=== PATIENT | male | born 1980 | race Caucasian/White ===

== ENCOUNTER → 2016-09-07 | Outpatient (CLI) | payer OTHER ==
[~2016-09-07] MED LIST: GADOBUTROL 10 ML VIAL IVP ONE
--- NOTE | 2016-09-07 21:06 | MR ---
MRI of the Brain (Without and With Contrast) September 07, 2016 Indication: Right hand weakness. Technique: T1-weighted images were acquired axially and sagittally from the foramen magnum to the ve rtex. Axial fast inversion recovery, fast T2-weighted, susceptibility, and diffusion-weighted axial images were obtained without contrast. Postcontrast axial and coronal images with the uneventful intr avenous administration of 8.5 mL Gadavist contrast. Findings: Diffusion-weighted imaging is normal. No evidence of acute ischemia. No intracranial hemorr lisa, mass, or extra-axial fluid collection. The T2 and FLAIR-weighted imaging reveals minimal hyperintense periventricular white matter disease i n the left parietal lobe. There is no corresponding enhancement on the postcontrast imaging. Alanis-whi te matter signal is otherwise normal. The ventricular system is normal caliber and midline. The cervicooccipital junction is normal. The pi tuitary gland is normal size. The paranasal sinuses are clear. The sagittal sinus and carotid and bas ivertebral arteries have normal black signal void. Impression: 1. No evidence of acute ischemia, hemorrhage or mass. 2. Isolated small volume of periventricular white matter disease in the left parietal lobe may be seq uela from previous infection, migraine or trauma. Differential diagnosis includes multiple sclerosis. No enhancement to suggest active demyelinating process. Comment: Results were called to Dr. Norah Olivo, at 8:30 p.m. on September 07, 2016.
--- NOTE | 2016-09-07 21:26 | MR ---
MRI cervical spine without and with IV contrast dated September 07, 2016 Indication: New onset of right hand and arm weakness. Technique: Sagittal T2, STIR, T1, and T1 postcontrast with fat suppression. Stacked axial T2 and T1 p ostcontrast sequences were obtained from the foramen magnum through the C7 vertebral body. 8.5 mL of Gadovist was uneventfully intravenously administered. Findings: Spinal cord has normal caliber and signal. No atrophy, gliosis, or abnormal enhancement. Ce rvicooccipital junction is normal. Spinal canal is capacious. Cervical spine is normally aligned. Bone marrow signal is normal. No acute disk herniation or central canal narrowing at any level. The neural foramina are widely patent. Specifically, no explanation fo r right-sided symptoms. Impression: Normal MRI of the cervical spine. No demyelinating spinal cord lesion or disk herniation . Comment: The results were called to Dr. Norah Olivo shortly after the study completion at 8: 30 p.m. on September 07, 2016.
== END ==
LOC: FIMAGING 17:57
PROVIDERS: ATTEND Nurse Practitioner Adult Health
DX: R53.1 Weakness (principal); R51 Headache
CPT/HCPCS: A9585

== ENCOUNTER 2017-09-14 14:21 | Emergency (ER) | payer OTHER ==
--- NOTE | 2017-09-14 14:55 | EDPHY ---
H & P Stated Complaint: R wrist, R foot weakness x 2-3 weeks Time Seen by Provider: 09/14/17 14:55 HPI/ROS: CHIEF COMPLAINT: Right wrist and footdrop HISTORY OF PRESENT ILLNESS: The patient presents to the ED with a 2-3 week history of a right wrist in footdrop. The patient reports his symptoms may have began after a "heavy night of sleep." The patient reportedly had a similar episode 1 year ago involving only his left wrist. At that point time he had an unremarkable MRI of the brain and cervical spine. The patient was ultimately diagnosed with a peripheral neuropathy which slowly improved. The patient denies any acute headache. He denies any complaints of neck pain or back pain. REVIEW OF SYSTEMS: A comprehensive 10 point review of systems is otherwise negative aside from elements mentioned in the history of present illness. Source: Patient - Personal History Current Tetanus Diphtheria and Acellular Pertussis (TDAP): Unsure - Medical/Surgical History Hx Asthma: Yes Hx Chronic Respiratory Disease: No Hx Diabetes: No Hx Cardiac Disease: No Hx Renal Disease: No Hx Cirrhosis: No Hx Alcoholism: No Hx HIV/AIDS: No Hx Splenectomy or Spleen Trauma: No Other PMH: OCD, tourrettes syndrome - Social History Smoking Status: Light smoker - Physical Exam Exam: General Appearance: Alert, no distress Eyes: Pupils equal and round no pallor or injection ENT, Mouth: Mucous membranes moist Respiratory: There are no retractions, lungs are clear to auscultation Cardiovascular: Regular rate and rhythm Gastrointestinal: Abdomen is soft and nontender, no masses, bowel sounds normal Neurological: Right foot drop, right radial nerve palsy, alert and oriented x4 , 5/5 strength remainder of all muscle groups, cranial nerves 2-12 intact Skin: Warm and dry, no rashes Musculoskeletal: Neck is supple nontender Extremities: symmetrical, full range of motion Psychiatric: Patient is oriented X 3, there is no agitation Constitutional: Initial Vital Signs Temperature (C) 36.8 C 09/14/17 14:26 Heart Rate 78 09/14/17 14:26 Respiratory Rate 18 09/14/17 14:26 Blood Pressure 106/62 09/14/17 14:26 O2 Sat (%) 95 09/14/17 14:26 O2 Delivery Mode Room Air Allergies/Adverse Reactions: amoxicillin Allergy (Verified 09/16/15 20:11) Home Medications: Medication Instructions Recorded Albuterol 09/16/15 Albuterol [Proventil Inhaler HFA 1 - 2 puffs IH Q4H #1 mdi 09/16/15 (*)] Ambien 09/16/15 Prozac 20 MG (RX) 09/16/15 Xanax 09/16/15 guaiFENesin/CODEINE PHOS 5 - 10 ml PO HS #120 ml 09/16/15 [Robitussin AC] predniSONE 1 dose PO DAILY #18 tablet 09/16/15 Medical Decision Making ED Course/Re-evaluation: I did kj Parker from Neurology. He recommends an MRI of the brain and cervical spine. He raises the possibility of HNPP as a possible diagnosis. The patient is currently 3 weeks into his symptoms. MRI of the brain and cervical spine demonstrate no central or cervical cause of weakness. The patient will be placed in a splint in his right upper extremity. The patient has been referred to the neurologist at [facility] for nerve conduction testing and further evaluation. Differential Diagnosis: Differential diagnosis considered includes peripheral neuropathy, stroke, tumor , demyelinating illness - Data Points Medications Given: Discontinued Medications Lorazepam (Ativan) 1 mg PO EDNOW ONE Stop: 09/14/17 15:17 Last Admin: 09/14/17 16:08 Dose: 1 mg Departure - Departure Disposition: Home, Routine, Self-Care Clinical Impression: Radial nerve palsy Qualifiers: Laterality: right Qualified Code(s): G56.31 - Lesion of radial nerve, right upper limb Peroneal nerve palsy Qualifiers: Laterality: right Qualified Code(s): G57.31 - Lesion of lateral popliteal nerve , right lower limb Condition: Good Instructions: Radial Nerve Palsy (ED) Additional Instructions: 1. Your MRI of the brain and cervical spine demonstrate no evidence of acute disease. 2. Wear splint to your right upper extremity while your nerve injuries healing. 3. Please follow up with the neurologist you have been referred to for nerve conduction testing. Referrals: Coleen Porter MD [Primary Care Provider] - As per Instructions Mamta Gómez DO [Non Staff and Non MD] - As per Instructions
[2017-09-14] MEDS ORDERED: LORazepam 1 MG TAB PO ONE (15:16)
[2017-09-14 18:16] VITALS: BP 127/72; PULSE 65; RESP 16; TEMP 98.6; O2SAT 99
== END 2017-09-14 18:16 | disposition home or self-care (01) ==
DX: G57.31 Lesion of lateral popliteal nerve, right lower limb (principal); G56.31 Lesion of radial nerve, right upper limb; J45.909 Unspecified asthma, uncomplicated; F17.200 Nicotine dependence, unspecified, uncomplicated
CPT/HCPCS: L3807

== ENCOUNTER 2017-12-06 20:48 | Inpatient (IN) | payer OTHER ==
[2017-12-06 21:33] LABS: PLATELET COUNT 293 10^3/uL (150-400)
[2017-12-06] MEDS ORDERED: LORazepam 1 MG TAB PO ONE (21:41)
--- NOTE | 2017-12-06 21:45 | EDPHY ---
H & P Smoking Status: Light smoker Time Seen by Provider: 12/06/17 21:34 HPI/ROS: CHIEF COMPLAINT: Manic and paranoid HISTORY OF PRESENT ILLNESS: Patient was placed on mental health hold by samuel after he called 911 reporting that he was being chased by monkeys that he sees. The patient was placed on a hold with"paranoid delusions"including seeing monkeys in that he"believes people are tugging him."The patient tells me that it is just the"local crew of people who are doing sleight of [employer] stuff"which is the reason he called 911. Patient denies any acute medical problems but is clearly manic and delusional. REVIEW OF SYSTEMS: Eye: no change in vision ENT: no sore throat Cardiac: no chest pain or syncope Pulmonary: no cough or SOB Abdomen: no vomiting, diarrhea, abdominal pain Musculoskeletal: no back pain Skin: no rash Neuro: no headache Constitutional: no fever : no urinary symptoms A comprehensive 10 point review of systems is otherwise negative aside from elements mentioned in the history of present illness. PAST MEDICAL HISTORY: OCD, Tourette syndrome Social history: Patient denies alcohol or methamphetamine. General Appearance: Alert and conversant, cooperative. Eyes: No scleral icterus. Pupils equal and extraocular motion intact. ENT, Mouth: Normal mucous membranes. Respiratory: Normal respiratory effort, breath sounds equal, lungs are clear to auscultation. Cardiovascular: Regular rate and rhythm. Gastrointestinal: Abdomen is soft and non tender. Neurological: Alert, face symmetric, normal motor and sensory in extremities. Skin: Warm and dry, no rashes. Musculoskeletal: No peripheral edema. Psychiatric: Patient has rapid rambling speech and appears manic. He has delusions as documented in the HPI. Emergency Department course/MDM: Arrives on a mental health hold. Screening labs and urine tox ordered. Oral Ativan for agitation, delusional, psychosis. Signed out to [facility] at midnight with psych evaluation in progress. (Arpit Chery) Constitutional: Initial Vital Signs Temperature (C) 36.8 C 12/06/17 20:48 Heart Rate 78 12/06/17 20:48 Respiratory Rate 16 12/06/17 20:48 Blood Pressure 137/75 H 12/06/17 20:48 O2 Sat (%) 95 12/06/17 20:48 O2 Delivery Mode Room Air Allergies/Adverse Reactions: amoxicillin Allergy (Verified 09/16/15 20:11) Home Medications: Medication Instructions Recorded Albuterol 09/16/15 Albuterol [Proventil Inhaler HFA 1 - 2 puffs IH Q4H #1 mdi 09/16/15 (*)] Ambien 09/16/15 Prozac 20 MG (RX) 09/16/15 Xanax 09/16/15 Armodafinil 150 mg 12/07/17 Medical Decision Making Differential Diagnosis: 6:30 a.m.- Patient remained stable throughout my shift. Labs were checked and were remarkable for benzodiazepine positivity. The patient has taken more Xanax then he should be according to his prescription bottle. TLC evaluated the patient overnight, however would like to re-examine him when he has perhaps metabolized more of his Xanax. At 7:00 a.m., the case will be signed out to the oncoming provider Dr. Levin. (Felisha Lombardo) Differential considered including but not limited to blanca, metabolic, drug or alcohol, bipolar disorder. (Arpit Chery) - Data Points Laboratory Results: Laboratory Results 12/06/17 21:05 12/06/17 21:05 Medications Given: Discontinued Medications Lorazepam (Ativan) 1 mg PO EDNOW ONE Stop: 12/06/17 21:42 Last Admin: 12/06/17 21:45 Dose: 1 mg Departure - Departure Clinical Impression: Acute psychosis Condition: Fair Referrals: Coleen Porter MD [Primary Care Provider] - As per Instructions
[2017-12-07] MEDS ORDERED: MAG HYDROX/AL HYDROX/SIMETH 30 ML UDCUP PO PRN (13:37)
[2017-12-07] MEDS ORDERED: OLANZapine DISINTEGR 10 MG TAB PO PRN (13:37)
[2017-12-07] MEDS ORDERED: NICOTINE POLACRILEX 2 MG GUM B PRN (13:37)
[2017-12-07] MEDS ORDERED: MAGNESIUM HYDROXIDE 30 ML UDCUP PO PRN (13:37)
[2017-12-07] MEDS ORDERED: ACETAMINOPHEN 325 MG TAB PO PRN (13:37)
[2017-12-07] MEDS ORDERED: ALBUTEROL 60 PUFFS/8 GM MDI IH PRN (13:45)
[2017-12-07] MEDS: chlordiazePOXIDE 25 MG CAP PO SCH ×2 (14:35→20:40)
[2017-12-07] MEDS: OLANZapine DISINTEGR 10 MG TAB PO SCH (20:48)
[2017-12-08] MEDS: chlordiazePOXIDE 25 MG CAP PO SCH ×2 (10:51→20:46)
--- NOTE | 2017-12-08 12:13 | BAPA ---
[f rep st] ADMISSION PSYCHIATRIC ASSESSMENT DATE OF SERVICE: 12/08/2017 CHIEF COMPLAINT: "I don't know what was going on, there was just a lot of noise and they were messin g with me." HISTORY OF PRESENT ILLNESS: Patient is a 37-year-old male with a past history of apparentl y OCD and Tourette's disorder. He also has a history of alcohol and marijuana use disorders. He rep orts having seen Dr. Marcelino Mcbride for a long time until his last year, has been seeing Dr. Roland pena since that time. 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 He states that, at one point, he believed he could see people walking around outside and that this move ment and activity related to him. He made an offhand comment that he believed that one of the people had something on his shoulder like a monkey and this has been mentioned in his evaluations and his M 1 hold as him seeing monkeys. He is quite offended by this insinuation and states that he has not ev er specifically seen monkeys, he does wonder if it was a monkey. He states that he has not been slee ping and that he has felt very anxious. He reports having used no substances recently and his urine drug screen was negative for all substances of abuse and his alcohol was less than detectable. He to ld the staff in the emergency department that he was concerned about his dog and he was mistreated by others. He had reported that he had started Nuvigil within the last week and had taken at least 3 d oses of this. It is very unclear how that corresponds in time with the emergence of these symptoms. In the emergency department, and with my interview today, he was very disorganized and struggled to communicate effectively. PAST PSYCHIATRIC HISTORY: The patient has been treated for some time for these conditions mentioned above. He denies any previous diagnosis of psychosis, schizophrenia, or bipolar disorder. He denies any previous psychiatric hospitalization. ALLERGIES: Amoxicillin. CURRENT MEDICATIONS: Reportedly Xanax 1 mg twice daily, Prozac 40 mg daily and Ambien 10 5 mg at bed time. PAST MEDICAL HISTORY: The patient denies any active medical problems. He states he had some exposur e to carbon monoxide in 1996, but notes no problems from this. SOCIAL HISTORY: Patient is recently or in the process of . He lives alone in an a partment with his dog. 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 He reports having some friends though rather few supports. He states he has a girlfriend of mylene timmons. He reported having 6 siblings and a close relationship with his parents. SUBSTANCE ABUSE HISTORY: Patient states he drank "heavily" in the past, though not for several years . Denies any recent drug or alcohol use. FAMILY HISTORY: The patient states that his mother has history of depression and addiction. ADMISSION LABORATORY: CBC shows H and H down at 13.4 and 37.9 with a normal MCV at 94.5, platelet co unt is sufficient at 293,000. Serum chemistries are normal with the exception of a potassium slightl y down at 3.1. Urine drug screen is positive for benzodiazepines only. MENTAL STATUS EXAMINATION: Reveals a disheveled, very thin male. He is wearing a [employer] jersey and hospital pants. He is lying in bed when I enter the room at approxima tely 11 o'clock but is able to awaken and talk with me. He displays a rather blunted though stable a nd appropriate affect, though he does become irritated during the interview when we discuss the possi bility of him having an acute mental illness. His mood is described as "pretty messed up." His thou ght process is tangential at times, though he is able to give some limited goal-directed answers with out much depth. He spends a lot of time talking about his idiosyncratic experiences while by himself in his home and is very difficult to follow. His thought content reveals paranoia with believing ot hers are trying to harm him and some ideas of reference. He denies any auditory, visual or tactile h allucinations. He is alert and oriented to person, place, time, and situation, and his sensorium is clear. There is no evidence of intoxication or delirium. His intellect appears to be average to abo ve average as evidenced by his educational and occupational history, his fund of knowledge, and vocab ulary. He denies any thoughts of suicide, homicide, or violence. His insight and judgment appear to be marginal. IMPRESSION: Unspecified psychotic disorder, marginal support, social isolation, chronic illness. The patient is a 37-year-old male with a self-reported history of OCD and Tourette's. The symptoms of these conditions are not entirely clear to me and he is unable to explain them in any det ail. He states he has taken the Prozac for some time for the treatment of this and I have discussed with him needing to hold that given the possibility of his manic presentation. He is not pleased by this but I have indicated to him that I will talk with Dr. Loredo and we will make a decision on how to proceed. In the interim, I will continue him on some scheduled Librium just to cover for any poss ible recent alcohol use and known Xanax and Ambien use. I will also hold any further use of any stim ulants including the Nuvigil. ESTIMATED LENGTH OF STAY: 5-7 days. /[id number]/MODL
--- NOTE | 2017-12-08 15:33 | BCON ---
[f rep st] BEHAVIORAL HEALTH CONSULTATION INTERNAL MEDICAL CONSULTATION. DATE OF CONSULTATION: 12/08/2017 REFERRING PHYSICIAN: Felix Villalobos MD REASON FOR REFERRAL: Medical clearance for inpatient behavioral health stay. HISTORY OF PRESENT ILLNESS: This patient came to the emergency department 2 days ago. He had been placed on a mental health hold after he called 911 reporting that he had been chased by monkeys that he was seeing. He was evaluated by the mental health team and admitted for further psychiatric care. He is currently without any acute medical complaints. PAST MEDICAL HISTORY: 1. Peripheral compression neuropathies including an episode of left peroneal nerve and right wrist drop and right footdrop with normal MRI of brain and cervical spine. 2. Asthma. 3. Mental health issues, and he reports history of OCD and Tourette's syndrome. PAST SURGICAL HISTORY: He has had repair of a left ankle fracture. MEDICATIONS PRIOR TO ADMISSION: 1. Zolpidem 5 mg p.o. q.h.s. p.r.n. 2. Duloxetine 40 mg p.o. daily. 3. Alprazolam 1 mg p.o. b.i.d. p.r.n. ALLERGIES: Listed to amoxicillin. SOCIAL HISTORY: He reports that he lives with a roommate who is out of town for work much of the time. He occasionally uses tobacco through a vape pen. He has a history of heavier drinking, but only uses alcohol occasionally now. FAMILY HISTORY: Noncontributory regarding medical conditions. REVIEW OF SYSTEMS: He reports that he lacerated his toe several days ago, and had considerable bleeding from it, but the bleeding has stopped, and he is not in pain. He denies cough or dyspnea. He denies fevers or chills, and otherwise a 10-point review of systems is negative. PHYSICAL EXAM: VITAL SIGNS: Blood pressure is 97/53, heart rate is 53, respiratory rate 16, oxygen saturation is 96% on room air, temperature is 36.6 degrees centigrade. His weight is 81.6 kg for a body mass index of 23.1. GENERAL: This is a well-nourished well-developed man who appears his chronologic age. Cooperative and in no acute distress. HEENT: Extraocular movements are intact. Pupils are equal, round, and reactive to light. Mucous membranes are moist. Dentition is in good condition. He is an uncrowded airway , Mallampati class 1. NECK: Supple. HEART: Regular rate and rhythm with no murmurs, rubs, or gallops. LUNGS: Clear to auscultation bilaterally. ABDOMEN : Benign. EXTREMITIES: There is no cyanosis, clubbing, or edema. There is an eschar on the lateral aspect of his left 5th toe with no erythema, swelling or drainage. NEUROLOGIC: He is alert and oriented x3. Cranial nerves 2-12 are grossly intact. There is no focal weakness, and sensation is intact to light touch. LABORATORY STUDIES: From the emergency department CBC showed mild anemia with a hemoglobin of 13.4 and hematocrit of 37.9. Mean platelet volume was low at 8.5, which is of no clinical significance. Otherwise, CBC was within normal limits. Serum chemistry showed a low potassium at 3.1. Otherwise, renal function and electrolytes were overall within normal limits. Toxicology screen in the urine was negative for ethyl alcohol in the urine, and in the serum was negative for ethyl alcohol, and in the urine was non-negative for benzodiazepines, but otherwise negative for substances of abuse. ASSESSMENT/RECOMMENDATIONS: 1. Mental health issues pending further evaluation and management per Psychiatry and the mental health team. 2. Anemia of unclear etiology, possibly due to his toe laceration. We will repeat hemoglobin and hematocrit in the morning, along with an iron panel and reticulocyte count. 3. Hypokalemia. Also of unclear etiology. We will repeat a BMP tomorrow morning. 4. Left 5th toe laceration appears to be healing. I see no medical contraindications to this patient's continued stay in the inpatient behavioral health unit or to any psychiatric medications or procedures. Thank you very much for including me in the care of this patient, and please do not hesitate to contact me or the hospitalist service, should there be need for further medical evaluation. /[id number]/MODL MTDD
[2017-12-08] MEDS: OLANZapine DISINTEGR 10 MG TAB PO SCH (20:47)
[2017-12-09] MEDS: chlordiazePOXIDE 25 MG CAP PO SCH (09:15)
[2017-12-09] MEDS ORDERED: chlordiazePOXIDE 25 MG CAP PO SCH (11:04)
--- NOTE | 2017-12-09 15:47 | SOAPPROG ---
SOAP Progress Note Assessment/Plan: Assessment: Plan: 12/09/17 15:42 Remains manic with continued, though less prominent delusions. Demonstrates poor insight into illness and need for continued inpatient treatment. I am not comfortable at this point discharging patient to home as I believe he is gravely disabled. I will therefore place him on a STC. I discussed with him the criteria to either d/c or return to voluntary status. He does not appear to be able to make informed, logical or safe decisions at this time. [employer]: Zyprexa, monitor. Pt's therapist Joselo may visit to assess over the WE. Subjective: Pt seen, discussed with staff. Also discussed with both pt's outpatient therapist, Roosevelt Freed and his psychiatrist, Dr. Yoni Deutsch. Roosevelt reports that pt has never demonstrated bobby blanca before, but has seemed to be escalating over past 4-6 weeks, with pressured speech and rather tangential thinking. Dr. Deutsch states he has not seen pt manic before. CC obtained collateral information from pt's mother that he has been taking Kratom. Objective: Vital Signs Temp Pulse Resp BP Pulse Ox 36.4 C 60 12 112/62 96 12/09/17 06:00 12/09/17 06:00 12/09/17 06:00 12/09/17 06:00 12/09/17 06:00 Laboratory Results 12/09/17 06:30 12/09/17 06:30 MSE: Disheveled, though interactive. Sleeping when I enter the room at 1100. Affect is constricted, stable. Mood is "bored." TP generally linear, though derails at times. Remains focused on "Internet security." TC reveals continued paranoid thoughts and IOR's. - Time Spent With Patient Time Spent With Patient: 45" ICD10 Worksheet Patient Problems: Problems Problem Status Onset Acute psychosis Acute
[2017-12-09] MEDS: OLANZapine DISINTEGR 10 MG TAB PO SCH (21:04)
--- NOTE | 2017-12-10 16:08 | SOAPPROG ---
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 with hx OCD and Tourette's, admitted with first manic episode in setting of starting Nuvigil and using Kratom. 12/10/17 16:01 slept 11hr. reports napping a lot and feeling very tired related to medication (zyprexa), otherwise no s/e. does feel mood was "fine" before admission except insomnia. denied any depression, feeling manic or any psychotic sxs. speech rate increased/mildly pressured but interruptible . cooperative for interview, good eye contact, casually dressed. overinclusive, some rambling, talking about [employer] and [email or web address], and supplements he takes outside hospital incl fish oil, Aravind' s oil. mood is "weirdly tired", affect full, somewhat hypomanic. thoughts without overt delusions. denied AH/VH. denied SI or thoughts to harm others. i/ j limited. cognition conversationally intact -cont current meds -zyprexa 10mg hs, librium 10mg bid -cont [facility] Objective: Vital Signs Temp Pulse Resp BP Pulse Ox 36.6 C 90 16 131/73 H 95 12/10/17 06:00 12/10/17 06:00 12/10/17 06:00 12/10/17 06:00 12/10/17 06:00 Laboratory Results 12/09/17 06:30 12/09/17 06:30 - Time Spent With Patient Time Spent With Patient: 30min - Pending Discharge Pending Discharge Within 24 Hours: No Pending Discharge Within 48 Hours: No ICD10 Worksheet Patient Problems: Problems Problem Status Onset Acute psychosis Acute
[2017-12-10] MEDS: OLANZapine DISINTEGR 10 MG TAB PO SCH (21:06)
[2017-12-11] MEDS: OLANZapine DISINTEGR 10 MG TAB PO SCH (20:38)
--- NOTE | 2017-12-11 22:12 | SOAPPROG ---
SOAP Progress Note Assessment/Plan: Assessment: 37yo CM on [facility] with hx OCD and Tourette's, admitted with first manic episode in setting of starting Nuvigil and using Kratom. 12/10/17 16:01 slept 11hr. reports napping a lot and feeling very tired related to medication (zyprexa), otherwise no s/e. does feel mood was "fine" before admission except insomnia. denied any depression, feeling manic or any psychotic sxs. speech rate increased/mildly pressured but interruptible . cooperative for interview, good eye contact, casually dressed. overinclusive, some rambling, talking about [employer] and [employer], and supplements he takes outside hospital incl fish oil, Aravind' s oil. mood is "weirdly tired", affect full, somewhat hypomanic. thoughts without overt delusions. denied AH/VH. denied SI or thoughts to harm others. i/ j limited. cognition conversationally intact -cont current meds -zyprexa 10mg hs, librium 10mg bid -cont [facility] 12/11/17 17:09 slept 8hr still c/o feeling tired with zyprexa and napped some today. otherwise no complaints. denied other s/e. attending groups. engaging. mood "great, positive". denied ah/vh or any si. -seems gradually improving. cont zyprexa 10mg hs, librium 10mg bid. VSS, no evid of bzd w/d -cont [facility] Objective: Vital Signs Temp Pulse Resp BP Pulse Ox 36.3 C 84 16 112/67 97 12/11/17 06:00 12/11/17 06:00 12/11/17 06:00 12/11/17 06:00 12/11/17 06:00 Laboratory Results 12/09/17 06:30 12/09/17 06:30 - Time Spent With Patient Time Spent With Patient: 20min - Pending Discharge Pending Discharge Within 24 Hours: No Pending Discharge Within 48 Hours: No ICD10 Worksheet Patient Problems: Problems Problem Status Onset Acute psychosis Acute
--- NOTE | 2017-12-12 13:31 | SOAPPROG ---
SOAP Progress Note Assessment/Plan: Assessment: Plan: 12/09/17 15:42 Remains manic with continued, though less prominent delusions. Demonstrates poor insight into illness and need for continued inpatient treatment. I am not comfortable at this point discharging patient to home as I believe he is gravely disabled. I will therefore place him on a STC. I discussed with him the criteria to either d/c or return to voluntary status. He does not appear to be able to make informed, logical or safe decisions at this time. Will [facility]: Zyprexa, monitor. Pt's therapist Joselo zhang visit to assess over the WE. 12/12/17 13:31 Carmen: Much improved over . Will [facility], set up d/c planning meeting with pt and outpatient therapist for tomorrow. Subjective: Pt seen, discussed with staff, chart reviewed, case discussed with Dr. De Leon. He has improved considerably over the weekend. He is sleeping > 7 hours per night and is much more organized, less pressured. Paranoia decreased. Remains compliant with meds. I discussed with him the need to continue Zyprexa after d/ c and he is agreeable to this. Objective: Vital Signs Temp Pulse Resp BP Pulse Ox 36.4 C 56 L 12 119/64 97 12/12/17 06:00 12/12/17 06:00 12/12/17 06:00 12/12/17 06:00 12/12/17 06:00 Laboratory Results 12/09/17 06:30 12/09/17 06:30 - Time Spent With Patient Time Spent With Patient: 25" ICD10 Worksheet Patient Problems: Problems Problem Status Onset Acute psychosis Acute
[2017-12-12] MEDS: OLANZapine DISINTEGR 10 MG TAB PO SCH (20:40)
[2017-12-13 06:50] VITALS: BP 112/51
== END 2017-12-13 13:59 | disposition home or self-care (01) | DRG 885 ==
LOC: BBEH 12-07 13:09 → UNDODISIN 12-13 13:59
PROVIDERS: ADMIT Psychiatry & Neurology Psychiatry; ATTEND Psychiatry & Neurology Psychiatry
DX: F29 Unspecified psychosis not due to a substance or known physiological condition (principal); J45.909 Unspecified asthma, uncomplicated; F42.9 Obsessive-compulsive disorder, unspecified; D64.9 Anemia, unspecified; E87.6 Hypokalemia; Z60.4 Social exclusion and rejection
CPT/HCPCS: 80305; G0480